=== PATIENT | male | born 1975 ===

== ENCOUNTER → 2018-05-27 23:29 | Outpatient (REF) | payer OTHER, SELFPAY ==
[2018-05-28 03:35] LABS: Add Manual Diff / Slide Review NO; Basophils Absolute Auto 0 /uL (0-100); Basophils Percent Auto 0.6 % (0-2); Eosinophils Absolute Auto 100 /uL (0-450); Hematocrit 44.7 % (41-53); Hemoglobin 14.4 g/dL (13.5-17.5); Lymphocytes Absolute Auto 1600 /uL (1100-4500); Lymphocytes Percent Auto 31.7 % (25-40); Mean Corpuscular HGB Conc 32.3 % (30-36); Mean Corpuscular Volume 83.6 fL (80-100); Monocytes Absolute Auto 400 /uL (0-900); Monocytes Percent Auto 7.1 % (3-14); Neutrophils Absolute Auto 2900 /uL (1500-7000); Neutrophils Percent Auto 58.6 % (50-75); Platelet Count 222 X10^3/uL (150-400); Red Blood Cell Count 5.34 X10^6/uL (4.5-5.9); Red Cell Distribution Width 15.1 % (11.6-14.8)
[2018-05-28 03:50] LABS: Alanine Aminotransferase 40 IU/L (21-72); Albumin 4.2 g/dL (3.5-5.0); Albumin Globulin Ratio 1.8 (1.0-2.8); Alkaline Phosphatase 63 U/L (38-126); Aspartate Aminotransferase 35 IU/L (17-59); BUN Creatinine Ratio 10.9 (6-22); Blood Urea Nitrogen 12 mg/dL (9-20); Calcium 9.9 mg/dL (8.4-10.2); Carbon Dioxide 27 mmol/L (22-32); Chloride 105 mmol/L (98-107); Estimated Glomerular Filt Rate > 60.0 mL/min (>60); Globulin 2.3 g/dL (1.7-4.1); Glucose 86 mg/dL (70-100); HEMOLYSIS < 15 (0-50); Potassium 4.7 mmol/L (3.4-5.1); Sodium 142 mmol/L (137-145); Total Protein 6.5 g/dL (6.3-8.2)
[2018-05-31 13:56] LABS: Sex Hormone Binding Globulin 33 nmol/L (10-50)
[2018-05-31 14:37] LABS: PSA Total 1.64 ng/mL (< 4.01)
[2018-06-02 21:53] LABS: Estradiol 36 pg/mL (< 40)
[2018-06-07 13:21] LABS: Testosterone Free 123.8
[2018-06-07 13:22] LABS: Testosterone Total 744
== END ==
LOC: LAB 23:29
PROVIDERS: Visit Provider Naturopath
DX: E29.1 Testicular hypofunction (principal); Z13.89 Encounter for screening for other disorder
CPT/HCPCS: 36415; 80053; 82670; 84153; 84154; 84270; 84402; 84403; 85025